=== PATIENT | male | born 1975 | race Caucasian/White ===

== ENCOUNTER → 2018-10-20 | Outpatient (CLI) | payer MEDICAID ==
[~2018-10-20] MED LIST: ACET30TAB PO; CLIN150C14 PO; CYMB60CA3 PO; DRIS50003 PO; DULO30CA PO; GABA-843 PO; INDO50CA PO; INDO50SU2 PO; LISI-538 PO; MELO15TA28 PO; MOBI15TA PO; NEUR100C PO; RANI75TA15 PO; TIZA4CAP PO; TRAM50TA2 PO; VOLT1GEL15 TD
== END ==
LOC: M OUTALCOH 08:37
PROVIDERS: ATTEND Psychiatry & Neurology Psychiatry
DX: Z03.89 Encounter for observation for other suspected diseases and conditions ruled out (principal)

== ENCOUNTER 2018-10-31 10:03 | Outpatient (RCR) | payer MEDICAID | END 2018-11-23 | LOC: M OUTALCOH 10:03 | PROVIDERS: ATTEND Psychiatry & Neurology Psychiatry | DX: Z03.89 Encounter for observation for other suspected diseases and conditions ruled out (principal) ==

== ENCOUNTER → 2018-12-18 | Outpatient (REF) | payer MEDICAID, OTHER ==
[~2018-12-18] MED LIST changes: +ACET-716 PO; -ACET30TAB PO; -DULO30CA PO; +DULO30CA9 PO
[2018-12-18 13:00] LABS: ALT/SGPT 79 U/L (12-78); BILIRUBIN,TOTAL 0.6 MG/DL (0.2-1.0); BLOOD UREA NITROGEN 12 MG/DL (7-18); CARBON DIOXIDE LEVEL 27 MEQ/L (21-32); CHLORIDE LEVEL 103 MEQ/L (98-107); CHOLESTEROL LEVEL 226 MG/DL (<200); CREATININE FOR GFR 0.97 MG/DL (0.70-1.30); FREE T4 1.15 NG/DL (0.76-1.46); GLOMERULAR FILTRATION RATE > 60.0 (>60); GLUCOSE, FASTING 93 MG/DL (70-100); HDL CHOLESTEROL 31 MG/DL (>40); LDL CHOLESTEROL 166 MG/DL (<100); NON-HDL-C 195 MG/DL; POTASSIUM SERUM 3.8 MEQ/L (3.5-5.1); SODIUM LEVEL 139 MEQ/L (136-145); TOTAL PROTEIN 7.4 GM/DL (6.4-8.2); TRIGLYCERIDES LEVEL 144 MG/DL (<150)
[2018-12-18 13:02] LABS: HEMOGLOBIN A1c 5.6 %
[2018-12-18 14:59] LABS: TOTAL 25(OH) VITAMIN D 17.3 NG/ML (30.0-100.0)
[2018-12-20 00:08] LABS: Lyme Disease IgG/IgM Antibodie <0.91 ISR (0.00-0.90); Lyme Disease IgM Ab Quantitati <0.80 index (0.00-0.79)
== END ==
LOC: M LAB REF 11:58
PROVIDERS: ATTEND Family Medicine
DX: Z00.01 Encounter for general adult medical examination with abnormal findings (principal); Z13.228 Encounter for screening for other metabolic disorders; R51 Headache

== ENCOUNTER → 2019-02-06 | Outpatient (REF) | payer OTHER ==
[~2019-02-06] MED LIST changes: -INDO50CA PO; +INDO50CA11 PO; +SUBO12MI SL
[2019-02-06 18:03] LABS: ALT/SGPT 26 U/L (12-78); BILIRUBIN,TOTAL 0.2 MG/DL (0.2-1.0); BLOOD UREA NITROGEN 11 MG/DL (7-18); CALCIUM LEVEL 8.9 MG/DL (8.5-10.1); CARBON DIOXIDE LEVEL 28 MEQ/L (21-32); CHLORIDE LEVEL 108 MEQ/L (98-107); GLOMERULAR FILTRATION RATE > 60.0 (>60); GLUCOSE, FASTING 101 MG/DL (70-100); POTASSIUM SERUM 4.3 MEQ/L (3.5-5.1); RHEUMATOID FACTOR QUANT < 10.0 IU/ML (<15.0); SODIUM LEVEL 139 MEQ/L (136-145)
[2019-02-06 18:04] LABS: BASO % 0.5 % (0.0-1.0); EOS # 0.3 10^3/uL (0.0-0.50); EOS % 3.2 % (0.0-3.0); HEMATOCRIT 41.2 % (42.0-52.0); HEMOGLOBIN 13.5 g/dl (13.5-17.5); LYMPH # 2.6 10^3/uL (1.5-4.5); LYMPH % 29.5 % (24.0-44.0); MEAN CORPUSCULAR HEMOGLOBIN 27.1 pg (27.0-33.0); MEAN CORPUSCULAR HGB CONC 32.8 g/dl (32.0-36.5); MEAN CORPUSCULAR VOLUME 82.7 fl (80.0-96.0); MONO # 0.7 10^3/uL (0.0-0.8); MONO % 8.5 % (0.0-5.0); PLATELET COUNT, AUTOMATED 315 10^3/uL (150-450); RED BLOOD COUNT 4.98 10^6/uL (4.30-6.10); WHITE BLOOD COUNT 8.6 10^3/uL (4.0-10.0)
[2019-02-06 20:23] LABS: ERYTHROCYTE SEDIMENTATION RATE 7 mm/hr (0-15)
[2019-02-09 00:06] LABS: ANTINUCLEAR ANTIBODIES DIRECT Negative (Negative)
== END ==
LOC: M LABNEURO 15:02
PROVIDERS: ATTEND Psychiatry & Neurology Neurology
DX: R51 Headache (principal)

== ENCOUNTER 2019-02-15 06:27 | Day surgery (SDC) | payer OTHER ==
[~2019-02-15] VITALS: Ht 172.7 cm; Wt 68.5 kg
[2019-02-15] MEDS ORDERED: NS 1,000 ML IV ONE (07:00)
[2019-02-15] MEDS ORDERED: PROPOFOL 200 MG/20 ML VIAL As Ordered ONE ×2 (07:22→08:03)
[2019-02-15] MEDS ORDERED: LIDOCAINE 2% INJ 100 MG/5 ML SDV (FOR ANES.) As Ordered ONE (07:22)
--- NOTE | 2019-02-15 08:26 | ROOR ---
Patient Name: James Carrillo Procedure Date: 02/15/2019 7:35 AM Date of : 1975 Age: 43 Room: [facility] Gender: Male Note Status: Finalized Procedure: Colonoscopy Indications: Colon cancer screening in patient at increased risk: Family history of colorectal cancer in multiple 2nd degree relatives Providers: Toney Jarvis MD Referring MD: Yasir WONG MD Requesting Provider: Medicines: Monitored Anesthesia Care Complications: No immediate complications. Procedure: Pre-Anesthesia Assessment: - Prior to the procedure, a History and Physical was performed, and patient medications and allergies were reviewed. The patient is competent. The risks and benefits of the procedure and the sedation options and risks were discussed with the patient. All questions were answered and informed consent was obtained. Patient identification and proposed procedure were verified by the physician, the nurse and the anesthesiologist in the procedure room. Mental Status Examination: alert and oriented. Airway Examination: normal oropharyngeal airway and neck mobility. Respiratory Examination: clear to auscultation. CV Examination: normal. Prophylactic Antibiotics: The patient does not require prophylactic antibiotics. Prior Anticoagulants: The patient has taken no previous anticoagulant or antiplatelet agents. ASA Grade Assessment: II - A patient with mild systemic disease. After reviewing the risks and benefits, the patient was deemed in satisfactory condition to undergo the procedure. The anesthesia plan was to use monitored anesthesia care (MAC). Immediately prior to administration of medications, the patient was re-assessed for adequacy to receive sedatives. The heart rate, respiratory rate, oxygen saturations, blood pressure, adequacy of pulmonary ventilation, and response to care were monitored throughout the procedure. The physical status of the patient was re-assessed after the procedure. The Colonoscope was introduced through the anus and advanced to the terminal ileum, with identification of the appendiceal orifice and IC valve. The colonoscopy was performed without difficulty. The patient tolerated the procedure well. The quality of the bowel preparation was good. Scope withdrawal time was 6 minutes. Scope withdrawal time was 10 minutes. The total duration of the procedure was 16 minutes. Findings: The perianal and digital rectal examinations were normal. The terminal ileum appeared normal. A 4 mm polyp was found in the ascending colon. The polyp was sessile. The polyp was removed with a cold snare. Resection and retrieval were complete. Verification of patient identification for the specimen was done by the physician and nurse using the patient's name, date and medical record number. Estimated blood loss was minimal. Two sessile polyps were found in the descending colon. The polyps were 6 to 8 mm in size. These polyps were removed with a cold snare. Resection and retrieval were complete. For hemostasis, one hemostatic clip was successfully placed. There was no bleeding at the end of the procedure. A few small-mouthed diverticula were found in the sigmoid colon. There was no evidence of diverticular bleeding. The colon (entire examined portion) was moderately tortuous. Advancing the scope required straightening and shortening the scope to obtain bowel loop reduction. The retroflexed view of the distal rectum and anal verge was normal and showed no anal or rectal abnormalities. Impression: - The examined portion of the ileum was normal. - One 4 mm polyp in the ascending colon, removed with a cold snare. Resected and retrieved. - Two 6 to 8 mm polyps in the descending colon, removed with a cold snare. Resected and retrieved. Clip was placed. - Mild diverticulosis in the sigmoid colon. There was no evidence of diverticular bleeding. - Tortuous colon. - The distal rectum and anal verge are normal on retroflexion view. Recommendation: - Patient has a contact number available for emergencies. The signs and symptoms of potential delayed complications were discussed with the patient. Return to normal activities tomorrow. Written discharge instructions were provided to the patient. - High fiber diet. - Continue present medications. - Await pathology results. - Repeat colonoscopy in 3 - 5 years for surveillance based on pathology results. - Based on the biopsy results you will receive a phone call from GI clinic in 2-3 weeks to review the pathology results AND/OR your results will be faxed to your Primary care physician. - Return to primary care physician. Toney Jarvis MD Toney Jarvis MD 02/15/2019 8:26:10 AM Electronically signed by Toney Jarvis MD Number of Addenda: 0 Note Initiated On: 02/15/2019 7:35 AM Estimated Blood Loss: Estimated blood loss: none.
[2019-02-15 08:35] VITALS: BP 126/86
== END 2019-02-15 08:46 | disposition home or self-care (01) ==
LOC: M OPP 06:27
PROVIDERS: ATTEND Internal Medicine Gastroenterology
DX: D12.2 Benign neoplasm of ascending colon (principal); D12.4 Benign neoplasm of descending colon; Z80.0 Family history of malignant neoplasm of digestive organs; Q43.8 Other specified congenital malformations of intestine; Z79.899 Other long term (current) drug therapy; F17.210 Nicotine dependence, cigarettes, uncomplicated

== ENCOUNTER → 2019-03-21 | Outpatient (REF) | payer OTHER, MEDICAID ==
[2019-03-21 13:45] LABS: APPEARANCE, URINE CLEAR (CLEAR); BACTERIA, URINE AUTO 1+ (NEGATIVE); BILIRUBIN, URINE AUTO NEGATIVE (NEGATIVE); BLOOD, URINE BLOOD NEGATIVE (NEGATIVE); COLOR, URINE YELLOW (YELLOW); GLUCOSE, URINE (UA) AUTO NEGATIVE (NEGATIVE); KETONE, URINE AUTO NEGATIVE (NEGATIVE); LEUKOCYTE ESTERASE, URINE AUTO NEGATIVE (NEGATIVE); MUCUS, URINE SMALL (NEGATIVE); NITRITE, URINE AUTO NEGATIVE (NEGATIVE); PROTEIN, URINE AUTO NEGATIVE (NEGATIVE); RBC, URINE AUTO 1 /HPF (0-3); SPECIFIC GRAVITY URINE AUTO 1.015 (1.002-1.035); SQUAMOUS EPITHELIAL CELL UR AU 0 /HPF (0-6); WBC, URINE AUTO 3 /HPF (0-3)
[2019-03-21 13:51] LABS: BASO # 0.1 10^3/uL (0.0-0.2); BASO % 0.5 % (0.0-1.0); EOS # 0.2 10^3/uL (0.0-0.50); EOS % 2.5 % (0.0-3.0); HEMOGLOBIN 13.7 g/dl (13.5-17.5); LYMPH # 3.4 10^3/uL (1.5-4.5); LYMPH % 34.9 % (24.0-44.0); MEAN CORPUSCULAR HEMOGLOBIN 27.5 pg (27.0-33.0); MEAN CORPUSCULAR HGB CONC 32.6 g/dl (32.0-36.5); MEAN CORPUSCULAR VOLUME 84.3 fl (80.0-96.0); MONO # 0.8 10^3/uL (0.0-0.8); MONO % 7.8 % (0.0-5.0); NEUTROPHILS # 5.2 10^3/uL (1.8-7.7); NEUTROPHILS % 53.6 % (36.0-66.0); PLATELET COUNT, AUTOMATED 416 10^3/uL (150-450); RED BLOOD COUNT 4.98 10^6/uL (4.30-6.10); WHITE BLOOD COUNT 9.6 10^3/uL (4.0-10.0)
[2019-03-21 14:20] LABS: HEMOGLOBIN A1c 5.8 %
[2019-03-21 14:36] LABS: ALBUMIN 3.5 GM/DL (3.2-5.2); ALT/SGPT 44 U/L (12-78); BILIRUBIN,TOTAL < 0.1 MG/DL (0.2-1.0); BLOOD UREA NITROGEN 12 MG/DL (7-18); CALCIUM LEVEL 9.1 MG/DL (8.5-10.1); CARBON DIOXIDE LEVEL 29 MEQ/L (21-32); CHLORIDE LEVEL 105 MEQ/L (98-107); CHOLESTEROL LEVEL 163 MG/DL (<200); CHOLESTEROL RISK RATIO 9.588 (<5); CREATININE FOR GFR 0.71 MG/DL (0.70-1.30); FREE T4 1.07 NG/DL (0.76-1.46); GLOMERULAR FILTRATION RATE > 60.0 (>60); GLUCOSE, FASTING 105 MG/DL (70-100); HDL CHOLESTEROL 17 MG/DL (>40); NON-HDL-C 146 MG/DL; POTASSIUM SERUM 4.1 MEQ/L (3.5-5.1); SODIUM LEVEL 141 MEQ/L (136-145); TOTAL 25(OH) VITAMIN D 40.4 NG/ML (30.0-100.0); TOTAL PROTEIN 7.1 GM/DL (6.4-8.2); TRIGLYCERIDES LEVEL 412 MG/DL (<150)
[2019-03-23 00:11] LABS: Lyme Disease IgG/IgM Antibodie <0.91 ISR (0.00-0.90); Lyme Disease IgM Ab Quantitati <0.80 index (0.00-0.79)
== END ==
LOC: M LAB REF 13:05
PROVIDERS: ATTEND Family Medicine
DX: Z00.01 Encounter for general adult medical examination with abnormal findings (principal); Z13.228 Encounter for screening for other metabolic disorders; R51 Headache

== ENCOUNTER → 2019-05-30 | Outpatient (REF) ==
[~2019-05-30] MED LIST changes: -INDO50CA11 PO; +INDO50CA91 PO
--- NOTE | 2019-05-30 15:08 | REP ---
RIGHT SHOULDER, THREE VIEWS: There is no evidence of an acute fracture, dislocation or intrinsic bone disease. The joint spaces appear unremarkable. IMPRESSION: No fracture or dislocation. Electronically Signed by Praful Gunter MD 05/30/2019 03:37 P
--- NOTE | 2019-05-30 15:09 | REP ---
LUMBOSACRAL SPINE: Three AP and lateral views of the lumbosacral spine are performed. No compression fracture is seen. There is normal alignment. There is no evidence of spondylolysis or spondylolisthesis. Tiny spurs are seen anteriorly. Disc spaces are well preserved. Posterior elements are intact. Scattered metallic clips are seen in the abdomen and pelvis. IMPRESSION: Minor spurring of lumbar vertebral bodies. Otherwise unremarkable exam. Electronically Signed by Praful Gunter MD 05/30/2019 03:37 P
== END ==
LOC: M SMT 13:48
PROVIDERS: ATTEND Internal Medicine
DX: Z00.00 Encounter for general adult medical examination without abnormal findings (principal)

== ENCOUNTER → 2019-08-01 | Outpatient (REF) | payer OTHER, MEDICAID ==
[2019-08-01 13:16] LABS: ALBUMIN 4.1 GM/DL (3.2-5.2); ALT/SGPT 18 U/L (12-78); BILIRUBIN,TOTAL 0.2 MG/DL (0.2-1.0); BLOOD UREA NITROGEN 16 MG/DL (7-18); CALCIUM LEVEL 9.3 MG/DL (8.5-10.1); CARBON DIOXIDE LEVEL 31 MEQ/L (21-32); CHLORIDE LEVEL 103 MEQ/L (98-107); CHOLESTEROL LEVEL 202 MG/DL (<200); CHOLESTEROL RISK RATIO 7.481 (<5); CREATININE FOR GFR 0.83 MG/DL (0.70-1.30); FREE T4 1.29 NG/DL (0.76-1.46); GLOMERULAR FILTRATION RATE > 60.0 (>60); GLUCOSE, FASTING 88 MG/DL (70-100); HDL CHOLESTEROL 27 MG/DL (>40); LDL CHOLESTEROL 124 MG/DL (<100); NON-HDL-C 175 MG/DL; POTASSIUM SERUM 3.9 MEQ/L (3.5-5.1); SODIUM LEVEL 139 MEQ/L (136-145); TOTAL PROTEIN 7.6 GM/DL (6.4-8.2); TRIGLYCERIDES LEVEL 254 MG/DL (<150)
[2019-08-01 13:44] LABS: HEMOGLOBIN A1c 5.5 %
== END ==
LOC: M LAB REF 12:30
PROVIDERS: ATTEND Family Medicine
DX: Z13.228 Encounter for screening for other metabolic disorders (principal); E03.8 Other specified hypothyroidism; R73.03 Prediabetes; E78.5 Hyperlipidemia, unspecified

== ENCOUNTER 2019-11-11 21:22 | Emergency (ER) | payer MEDICAID, OTHER ==
[~2019-11-11] VITALS: Ht 172.7 cm; Wt 63.6 kg
[2019-11-11 21:23] VITALS: BP 157/80
[2019-11-11] MEDS ORDERED: AMPH1CAP16 (21:29)
[2019-11-11] MEDS ORDERED: ATOR1TAB19 (21:29)
[2019-11-11] MEDS ORDERED: DIVA500T94 (21:29)
[2019-11-11] MEDS ORDERED: NORCO, ANEXSIA 5/325MG TABLET (HYDROcodone/ACETAMINOPHEN) PO ONE (23:15)
[2019-11-11] MEDS ORDERED: methocarbamoL 750 MG TAB PO ONE (23:15)
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
[2019-11-12] MEDS ORDERED: ANEC4CRE3 TOP (00:36)
[2019-11-12] MEDS ORDERED: IBUP-1022 PO (00:36)
[2019-11-12] MEDS ORDERED: NORCO 5/325MG TABLET (BULK FOR ED) PO ONE (00:45)
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
--- NOTE | 2019-11-12 08:10 | REP ---
Clinical: Trauma . Comparison: None . Technique: PA and lateral. Findings: The mediastinum and cardiac silhouette are normal. The lung tijerina are clear and without acute consolidation, effusion, or pneumothorax. The subtle nondisplaced fracture involving the left scapula is barely perceptible on frontal chest x-ray. Impression: 1. No acute cardiopulmonary process. Electronically Signed by Bart Maxwell MD 11/12/2019 08:01 A
--- NOTE | 2019-11-12 08:11 | REP ---
Clinical: Trauma. Technique: Internal rotation, external rotation, and Y view of the left shoulder. Findings: Acromioclavicular and glenohumeral joints are intact and normal. There is a subtle nondisplaced linear fracture through the mid scapular body with overlying soft tissue swelling best identified on Y-view. Impression: 1. Nondisplaced scapular fracture with overlying soft tissue swelling. 2. Acromioclavicular and glenohumeral joints are intact. Electronically Signed by Bart Maxwell MD 11/12/2019 08:02 A
== END 2019-11-12 01:00 | disposition home or self-care (01) ==
LOC: M ED 21:22
DX: S49.92XA Unspecified injury of left shoulder and upper arm, initial encounter (principal); S42.115A Nondisplaced fracture of body of scapula, left shoulder, initial encounter for closed fracture; V03.10XA Pedestrian on foot injured in collision with car, pick-up truck or van in traffic accident, initial encounter; Y92.410 Unspecified street and highway as the place of occurrence of the external cause; Y93.9 Activity, unspecified; Y99.9 Unspecified external cause status; I10 Essential (primary) hypertension; F17.200 Nicotine dependence, unspecified, uncomplicated; Z79.899 Other long term (current) drug therapy

== ENCOUNTER 2021-03-02 19:33 | Emergency (ER) | payer OTHER ==
[~2021-03-02] VITALS: Ht 167.6 cm; Wt 63.7 kg
[~2021-03-02 19:33] MED LIST changes: +AMPH1CAP16; +ANEC4CRE3 TOP; +ATOR1TAB19; -CLIN150C14 PO; +CLIN150C15 PO; +DIVA500T94; +GABA-282 PO; -GABA-843 PO; +IBUP-1022 PO; -LISI-538 PO; +LISI20TA33 PO
[2021-03-02] MEDS ORDERED: cefTRIAXone 500MG VIAL (J0696 PER 250MG) IM ONE (22:45)
[2021-03-02] MEDS ORDERED: valACYclovir HCL 500 MG TAB PO ONE (22:45)
[2021-03-02] MEDS ORDERED: DOXYCYCLINE HYCLATE 100MG TABLET PO ONE (22:45)
[2021-03-02] MEDS ORDERED: LIDOCAINE 1% SDV 5ML VIAL DILUENT ONE (22:45)
[2021-03-02] MEDS ORDERED: VALT1TAB PO (23:01)
[2021-03-02] MEDS ORDERED: MAGICMW SSP (23:01)
[2021-03-02] MEDS ORDERED: DOXY100C37 PO (23:01)
[2021-03-03 01:23] VITALS: BP 139/8
== END 2021-03-03 01:24 | disposition home or self-care (01) ==
LOC: M ED 19:33
DX: Z20.2 Contact with and (suspected) exposure to infections with a predominantly sexual mode of transmission (principal); B00.82 Herpes simplex myelitis; R21 Rash and other nonspecific skin eruption; F17.200 Nicotine dependence, unspecified, uncomplicated; F19.10 Other psychoactive substance abuse, uncomplicated
CPT/HCPCS: 87255; 87490; 87590; 96372; 99283; J0696